=== PATIENT | female | born 2000 | race Two or more races ===

== ENCOUNTER 2025-04-26 01:41 | Emergency (ER) | payer SELFPAY ==
[~2025-04-26] VITALS: Ht 170.2 cm; Wt 112.0 kg
--- NOTE | 2025-04-26 02:35 | Physician Documentation ---
History of Present Illness ~ Chief Complaint: Abdominal Pain Stated Complaint: AB PAIN Time Seen by MD: 02:18 Mode of Arrival: POV HPI Patient presents to the emergency room with right-sided flank pain. She states she has had these symptoms previously over the past six months and has been seen multiple times in the emergency room and each time they temp give her a sq answer although she does state that she has renal cysts and renal calculi. I asked her if this has been going on for the past six months why she decided to come in at 2:00 a.m. today she states because she always goes to the emergency room when it begins to hurt. She states that she has been taking Tylenol and ibuprofen with limited benefit in his requesting stronger pain medication if she is discharged. Medication Reconciliation Allergies: Coded Allergies: ketorolac (Verified Allergy, Unknown, 04/26/25) Review of Systems ROS All review of systems negative except as per HPI Physical Exam Vital Signs: Temperature: 98.6, Source: Temporal, Heart Rate: 88, Respiratory Rate: 16, BP: 119/85, Pulse Oximetry: 99, Weight: 112.000 Physical Exam General: Patient is awake, alert, oriented x4 in no acute distress. Appears comfortable Head: Normocephalic and atraumatic. Eyes: Conjunctival normal. EOMI. PERRL. ENT: Mucous membranes moist. Neck: Supple, trachea is midline. Chest: Clear to auscultation bilaterally without rales, rhonchi, or wheezes. There is no accessory muscle use or retractions. Cardiac: RRR without murmurs, gallops, or rubs. Abd: Soft, nondistended, nontender, with normoactive bowel sounds. No guarding, rebound, or rigidity. Extremities: Normal strength. Normal range of motion. No deformities or edema. Back: Right-sided CVA tenderness. Progress Results/Orders Results/Orders Orders - OLEKSANDR MONTEMAYOR MD Saline Lock (04/26/25 02:20) Nothing By Mouth (04/26/25 Dinner) Ct Abdomen Pelvis (04/26/25 02:29) Completed Orders - OLEKSANDR MONTEMAYOR MD Cbc/Diff (04/26/25 02:20) Lipase (04/26/25 02:20) Urinalysis, Cult If Indicated (04/26/25 02:20) BMP (04/26/25 02:20) Hcg Serum Ql (04/26/25 02:29) Ct Abdomen Pelvis (04/26/25 02:29) Hydrocodone/Apap 5/325mg Tab (Seney 5/32 (04/26/25 02:30) Ondansetron Disint. Tablet (Zofran Odt T (04/26/25 02:35) Hcg, Ur Ql (04/26/25 03:22) Hcg Serum Qt (04/26/25 03:25) Medications Received in ER Medications (Trade) Dose Ordered Sig/Karin Route PRN Reason Start Time Stop Time Status Last Admin Dose Admin (Seney 5/325mg tablet) 1 tab ONCE ONCE PO 04/26/25 02:30 04/26/25 02:31 DC 04/26/25 02:50 1 TAB (Zofran ODT tablet) 4 mg ONCE ONCE PO 04/26/25 02:35 04/26/25 02:36 DC 04/26/25 02:50 4 MG Vital Signs 04/26/25 04/26/25 04/26/25 04/26/25 01:44 02:00 02:50 03:17 Temp 98.6 Pulse 88 74 Resp 15 16 18 14 B/P (MAP) 119/85 134/76 (95) Pulse Ox 99 98 04/26/25 04/26/25 03:54 04:50 Pulse 79 Resp 15 16 B/P (MAP) 100/47 (64) Pulse Ox 98 Laboratory Tests Test 04/26/25 02:20 04/26/25 02:37 Urine Specimen Description Cln catch midstream Urine Color Yellow Urine Clarity Clear Urine pH 6.0 Urine Specific [place] >=1.030 Urine Protein Negative Urine Glucose (UA) Negative Urine Ketones Negative Urine Occult Blood Negative Urine Nitrite Negative Urine Bilirubin Negative Urine Urobilinogen 0.2 Urine Leukocyte Esterase Negative Urine Culture Indicated Not ind Volume Urine Centrifuged 10 ml Urine HCG, Qualitative Negative Urine Comment White Blood Count 6.8 Red Blood Count 4.33 Hemoglobin 11.6 L Hematocrit 35.5 Mean Corpuscular Volume 81.8 Mean Corpuscular Hemoglobin 26.8 L Mean Corpuscular Hemoglobin Concent 32.7 L Red Cell Distribution Width 15.0 H Platelet Count 331 Mean Platelet Volume 7.4 Neutrophils (%) (Auto) 52.6 Lymphocytes (%) (Auto) 37.1 Monocytes (%) (Auto) 6.9 Eosinophils (%) (Auto) 2.6 Basophils (%) (Auto) 0.8 Neutrophils # (Auto) 3.6 Lymphocytes # (Auto) 2.5 Monocytes # (Auto) 0.5 Eosinophils # (Auto) 0.2 Basophils # (Auto) 0.1 CBC Comment Sodium Level 139 Potassium Level 3.7 Chloride Level 105 Carbon Dioxide Level 26.8 Anion Gap 7 L Blood Urea Nitrogen 9 Creatinine 0.57 Estimated GFR/1.73 m2 > 90 BUN/Creatinine Ratio 15.8 Glucose Level 132 H Calcium Level 8.3 L Albumin 3.4 Lipase 27 Human Chorionic Gonadotropin, Qual Equivocal HCG Beta Subunit < 1.0 Chemistry Comments Medical Decision Making Additional information obtaine: N/A Findings Patient presents to the emergency room with right-sided flank pain as per HPI. Differentials include but are not limited to musculoskeletal pain, kidney stone, pyelonephritis, renal cyst therefore emergent labs and imaging indicated. Urinalysis is negative for urine and labs are otherwise reassuring. CT scan reassuring. Noted stool. Patient is responding to therapy. Diff Dx GI Bleed:Consideration: Include: AE fistula, Angiodysplasia, Bleeding diathesis, Blood loss anemia, Carcinoma, Diverticulosis, Diverticulitis, Esophageal varicies, Esophagitis, Gastritis, Gastroenteritis, Inflammatory BD, Shelbi-Sims syndrome, Meckel's diverticulum, PUD, Other Diff Dx Pain:Considerations: Include: AAA, -Complete, - Incomplete, -Inevitable, -Missed, -Threatened, Abruptio placentae, Angina/UT, Aortic dissection, Appendicitis, Bowel obstruction, Cholangitis, Cholecystitis, Cholelithasis, Constipation, Diverticular disease, Dysmenorrhea, Ectopic , Esophageal rupture, Esophagitis, Gastritis/PUD, Gastroenteritis, GI hemorrhage, Hernia, Hepatitis, Inflammatory BD, Ischemic bowel, Mass, Ovarian cyst/torsion, Pancreatitis, PID, Porphyria, Trauma, intraabdominal, Urinary obstruction, Urinary tract infection, Urolithiasis, Other Diff Dx N/V/D:Considerations: Include: Appendicitis, Bowel obstruction, Dehydration, DKA, Diarrhea - bacterial, Diarrhea - parasitic, Diarrhea - viral, Diverticulitis, Diverticulosis, Drug toxicity, Electrolyte imbalance, Food poisoning, Gastroenteritis, GE reflux, GI bleed, Hepatitis, Hernia, Hypovolemia, Hypotension, Inflammatory BD, Impaction, Malnutrition, Pancreatitis, , PUD, Renal failure, Urolithiasis, Urinary obstruction, UTI, Other Diff Dx Rectal:Considerations: Include: Fissure, Fistula, Foreign body, Impaction, Perirectal abscess, Rectal prolapse, Subcutaneous abscess, Thrombosed hemorrhoid, Ulcer, UTI, Other Departure Disposition: 01 HOME / SELF CARE / HOMELESS Impression: Primary Impression: Flank pain Condition: Stable Discharge Instructions: Abdominal Pain (Nonspecific) Additional Instructions: Unknown cause for your symptoms. They did see a lot of stool in your colon. Stool softeners may be of benefit and I will give you a prescription. You need to follow up with your doctor which you have not done in the past six months. I will not be giving you anymore pain medicine Referrals: NO PRIMARY CARE PROVIDER (PCP) Prescriptions Tramadol HCl (Tramadol HCl) 50 Mg Tablet 1 TAB PO Q6H PRN PRN for pain, #7 TAB Prov: OLEKSANDR MONTEMAYOR MD 04/26/25 Signature Scribe Signature: No scribe Attestation: The note accurately reflects work and decisions made by me.Oleksandr Montemayor MD 04/26/25 05:29 OLEKSANDR MONTEMAYOR MD Apr 26, 2025 02:35
[2025-04-26 02:46] LABS: MEAN PLATELET VOLUME 7.4 FL (7.4-10.4); RED CELL DISTRIBUTION WIDTH 15.0 % (11.5-14.5)
[2025-04-26] MEDS: ondansetron 4mg rapidly disintigrating tab PO ONE (02:50)
[2025-04-26] MEDS: HYDROcodone/acetaminophen 5mg/325mg tablet PO ONE (02:50)
[2025-04-26 02:56] LABS: CREATININE 0.57 MG/DL (0.40-0.90); TOTAL CARBON DIOXIDE 26.8 MMOL/L (24-32); eCRCL 145 ML/MIN; eGFR > 90 ML/MIN
[2025-04-26 03:09] LABS: HCG SERUM QL EQUIVOCAL
[2025-04-26 03:33] LABS: LEUKOCYTE ESTERASE ,URINE NEGATIVE (Neg); NITRITES, URINE NEGATIVE (Neg); OCCULT BLOOD,URINE NEGATIVE (Neg); UA COLLECTION TYPE CLN CATCH MIDSTREAM
[2025-04-26 04:08] LABS: URINE HCG NEGATIVE (NEG)
--- NOTE | 2025-04-26 05:22 | RADIOLOGY REPORT ---
Exam: CT CT ABDOMEN PELVIS History: right flank pain w hematuria COMPARISON: None Technique: Multidetector spiral CT of the abdomen and pelvis was performed from lung bases to pubic symphysis. Intravenous contrast was administered during this examination. Portal venous imaging was obtained. Axial, coronal and sagittal multiplanar reformats were performed by the technologist on a separate workstation. Radiation Dose : 1. Abdomen/Pelvis: CTDIvol 35.83 mGy, DLP 1896.68 mGy*cm. CONTRAST: Type of contrast: Contrast injected: ml Contrast ingested: ml Findings: Lung Bases: No acute or significant lung base finding. Normal heart size. No pleural or pericardial effusion. Liver: The liver is enlarged, measuring 22.1 cm in craniocaudal dimension. No focal lesions. Normal hepatic vascular enhancement. Gallbladder and Biliary Tree: Status post cholecystectomy. Spleen: Unremarkable Pancreas: The pancreas is normal in appearance without focal lesions or abnormal enhancement. Adrenal Glands: Unremarkable Kidneys: No hydronephrosis. Bladder: Unremarkable Bowel: The stomach is grossly normal in appearance. Retained colorectal stool. Small bowel and colon are otherwise normal in caliber and distribution. The appendix is normal. Ascites: Absent Lymphadenopathy: No mesenteric, retroperitoneal or periportal lymphadenopathy. Abdominal Wall and Mesentery: Unremarkable. Vasculature: The visualized abdominal aorta is normal in size and caliber. Abdominal and pelvic vessels demonstrate normal enhancement. Pelvic Organs: Unremarkable Musculoskeletal: No aggressive focal bony lesions, acute fractures or dislocation. IMPRESSION: 1. No acute abdominal or pelvic finding. 2. Hepatomegaly. 3. Retained colorectal stool. Radiation optimization: All CT scans at this facility use at least one of these dose optimization techniques: automated exposure control mA and/or kV adjustment per patient size (includes targeted exams where dose is matched to clinical indication) or iterative reconstruction.
[2025-04-26] MEDS ORDERED: TRAM50TA2 PO (05:29)
[2025-04-26] MEDS ORDERED: BISA-78 PO (05:30)
[2025-04-26 05:41] VITALS: BP 132/84; PULSE 72; RESP 19; TEMP 98.6; O2SAT 99
== END 2025-04-26 05:43 | disposition home or self-care (01) ==
LOC: ER 01:44
DX: R10.A1 Flank pain, right side (principal); Z79.899 Other long term (current) drug therapy
CPT/HCPCS: 36415; 74176; 80048; 81003; 81025; 83690; 84702; 84703; 85025; 99284